=== PATIENT | male | born 2000 | race Caucasian/White ===

== ENCOUNTER 2025-03-07 16:54 | Emergency (ER) | payer OTHER, SELFPAY ==
--- NOTE | ~2025-03-07 | XR_ITS ---
XR chest 2V HOSTORY: dizzy, presyncope COMPARISON:[ None] FINDINGS: Frontal and lateral views of the chest were obtained. The lungs are clear. The heart size is normal in size. Pulmonary vasculature is unremarkable. Osseous structures are intact. IMPRESSION: No acute lung findings.] [ ] Reviewed, dictated and finalized at location S.
[2025-03-07 16:56] VITALS: BP 133/109; PULSE 130; RESP 18; O2SAT 98
--- NOTE | 2025-03-07 17:05 | ECG_ITS ---
Test Date: 2025-03-07 17:29:44 Measurements Intervals [place] Rate: 118 P: 54 IA: 115 QRS: 134 QRSD: 94 T: 47 QT: 305 QTc: 428 Interpretive Statements SINUS TACHYCARDIA WITH SHORT IA INTERVAL RIGHT AXIS DEVIATION INCOMPLETE RIGHT BUNDLE BRANCH BLOCK BORDERLINE R WAVE PROGRESSION, ANTERIOR LEADS BASELINE ARTIFACT- I, II, III, AVR, AVL, AVF, V1-V2 ABNORMAL ECG No previous ECG available for comparison Electronically Signed On 03-07-2025 19:10:13 CDT by Sebastian Mcclure D.O.
[2025-03-07 19:21] VITALS: BP 143/90; PULSE 111; RESP 18; O2SAT 98
[2025-03-07 20:52] VITALS: PULSE 100
[2025-03-07 20:54] LABS: Hematocrit 49.6 % (42.0-52.0); Hemoglobin 16.2 g/dL (14.0-18.0); Immature Granulocyte Percent A 0.4 % (0-0.5); Lymphocytes Absolute Auto 1.76 K/mm3 (0.9-3.2); Mean Corpuscular HGB Conc 32.7 g/dl (32-36); Mean Corpuscular Hemoglobin 27.2 pg (26-34); Mean Corpuscular Volume 83.4 fl (80-100); Nucleated Red Blood Cells Absolute Auto 0.000 K/mm3 (0.0-0.012); Nucleated Red Blood Cells Perc 0.0 % (0.0-0.2); Platelet Count Result 254 k/mm3 (150-375); Red Blood Count 5.95 M/mm3 (4.6-6.20); White Blood Count 10.0 K/mm3 (4.5-10.0)
[2025-03-07] MEDS: LACTATED RINGERS 1,000 ML 999 ML IV CONT (20:54)
--- NOTE | 2025-03-07 21:01 | ED_ITS ---
HPI - Dizziness General Chief Complaint: Dizziness Stated Complaint: elevated heart rate/BP/dizziness Time Seen by Provider: 03/07/25 20:38 History of Present Illness HPI Narrative: 24-year-old male with history of ADHD on Ritalin presenting to the emergency department today with episodes of dizziness, lightheadedness, blurry vision, cool extremities and feeling like he is going to pass out and like his heart was racing. Has happened to home yesterday and once today while he was at work not doing anything particularly strenuous or exertional. States he has had similar episodes prior that happened 6 months ago and then 2 months ago that were attributed to urinary infection but otherwise no acute findings. Patient states he has been drinking lots of water and going to the bathroom as he wants to stay hydrated no history of diabetes. No history of cardiac dysrhythmias to his knowledge. Only on Ritalin and no other medications at this time. No recent titration is to his medications and he has been on a stable dose for several years. Her recent illnesses or infections. No traumatic injuries. 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 Related Data Allergies Allergy/AdvReac Type Severity Reaction Status Date / Time No Known Allergies Allergy Verified 03/07/25 16:55 Review of Systems 2 Review of Systems: As reviewed above in HPI Exam 2 Narrative: GENERAL: [Well-appearing, well-nourished, and in no acute distress.] HEAD: [Normocephalic, atraumatic.] EYES: [PERRLA and EOMI.] ENT: Nares clear, no rhinorrhea or epistaxis. Mucous membranes moist. NECK: Supple. CHEST: [Clear to auscultation. No respiratory distress.] HEART: tachycardic rate, regular rhythm, warm extremities and symmetric pulses throughout.. No murmur heard. ABDOMEN: [Soft, nondistended], [nontender], [No rigidity or guarding] EXTREMITIES: Normal range of motion. [No edema.] SKIN: Warm, dry, no rash. NEURO: [No focal deficits]. Alert and oriented [x3.] PSYCH: [Normal mood and affect.] Course Vital Signs Vital signs: Vital Signs Pulse Rate 130 H 03/07/25 16:56 Respiratory Rate 18 03/07/25 16:56 Blood Pressure 133/109 H 03/07/25 16:56 Pulse Oximetry 98 10/30/25 16:56 Oxygen Delivery Room Air 03/07/25 16:56 Pulse Rate 79 03/07/25 23:47 Respiratory Rate 16 03/07/25 23:47 Blood Pressure 101/67 03/07/25 23:47 Pulse Oximetry 96 03/07/25 23:47 Oxygen Delivery Room Air 03/07/25 19:21 MDM - Dizziness MDM Narrative Medical decision making narrative: 24-year-old male with history of ADHD on Ritalin presenting to the emergency department today with episodes of dizziness, lightheadedness, blurry vision, cool extremities and feeling like he is going to pass out and like his heart was racing. Has happened to home yesterday and once today while he was at work not doing anything particularly strenuous or exertional. States he has had similar episodes prior that happened 6 months ago and then 2 months ago that were attributed to urinary infection but otherwise no acute findings. Patient states he has been drinking lots of water and going to the bathroom as he wants to stay hydrated no history of diabetes. No history of cardiac dysrhythmias to his knowledge. Only on Ritalin and no other medications at this time. No recent titration is to his medications and he has been on a stable dose for several years. Her recent illnesses or infections. No traumatic injuries. 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 Patient is mildly tachycardic here but better than his triage vital signs. No tachypnea or fever. Mildly elevated blood pressure. Unremarkable physical examination. Patient is describing presyncope type symptoms with prodrome prior to passing out but did not have a syncopal event. No headache or vision changes presently. States he is back to normal and these episodes of happen sporadically 1 time yesterday and 2 times in the past. He is overall well- appearing. Will investigate electrolyte derangements, diabetes potential, thyroid anomalies, possibility of a UTI given his history of similar episodes in prior infections. EKG shows sinus tachycardia. No dysrhythmia. Patient on granulating blender and re-evaluated. Given a fluid bolus. workup shows no leukocytosis or anemia. Normal platelet count. Electrolytes are unremarkable. Normal BUN and creatinine. Normal glucose. Normal LFTs. Normal TSH. Urinalysis without signs of infection or blood. EKG shows no acute concern. Chest x-ray without any acute findings. Patient's vital signs improved after fluids. No urgent or emergent concerns found today during ER visit. Will have to follow up with his outpatient primary care provider and given return precautions. Medical Records Attestation: I reviewed the patient's medical records. Lab Data Attestation: I reviewed the patient's lab results. 03/07/25 20:49 03/07/25 20:49 Labs: Lab Results 03/07/25 03/07/25 Range/Units 20:49 21:38 WBC 10.0 (4.5-10.0) K/mm3 RBC 5.95 (4.6-6.20) M/mm3 Hgb 16.2 (14.0-18.0) g/dL Hct 49.6 (42.0-52.0) % MCV 83.4 (80-100) fl MCH 27.2 (26-34) pg MCHC 32.7 (32-36) g/dl RDW 13.8 (11.5-14.5) % Plt Count 254 (150-375) k/mm3 MPV 9.7 (7.4-10.4) fl Immature Gran % (Auto) 0.4 (0-0.5) % Neut % (Auto) 72.2 (45.5-73.1) % Lymph % (Auto) 17.7 L (18.3-44.2) % [place] % (Auto) 7.4 (2.6-8.5) % Eos % (Auto) 1.8 (0-4.4) % Baso % (Auto) 0.5 (0.2-1.2) % Lymph # (Auto) 1.76 (0.9-3.2) K/mm3 [place] # (Auto) 0.7 H (0.1-0.6) K/mm3 Eos # (Auto) 0.2 (0-0.3) K/mm3 Baso # (Auto) 0.1 (0.0-0.1) K/mm3 Abs Immat Gran (auto) 0.04 H (0.00-0.031) K/mm3 Absolute Neuts (auto) 7.2 H (1.3-6.7) K/mm3 Absolute Nucleated RBC 0.000 (0.0-0.012) K/mm3 Nucleated RBC % 0.0 (0.0-0.2) % Sodium 136 L (137-145) mmol/L Potassium 4.0 (3.4-5.0) mmol/L Chloride 101 (98-107) mmol/L Carbon Dioxide 27 (22-30) mmol/L Anion Gap 8 (4-12) mmol/L BUN 10 (9-20) mg/dL Creatinine 0.81 (0.7-1.3) mg/dL Estim Creat Clear Calc 151 ml/min Estimated GFR > 60 (59 - ) Glucose 92 (65-110) mg/dL Calcium 8.8 (8.4-10.2) mg/dL Total Bilirubin 0.4 (0.2-1.3) mg/dL AST 47 (17-59) U/L ALT 99 H (6-50) U/L Alkaline Phosphatase 71 (38-126) U/L Total Protein 7.9 (6.3-8.2) g/dL Albumin 4.5 (3.5-5.1) g/dL TSH (Reflex) 2.650 (0.465-4.68) uIU/mL Urine Color Yellow (Yellow) Urine Appearance Clear (Clear) Urine pH 7.0 (5.0-9.0) Ur Specific [place] 1.015 (1.001-1.035) Urine Protein Negative (Negative) mg/dL Urine Glucose (UA) Negative (Negative) mg/dL Urine Ketones Negative (Negative) mg/dL Ur Blood (Man) Negative (Negative) Urine Nitrate Negative (Negative) Urine Bilirubin Negative (Negative) Urine Urobilinogen 0.2 (<2.0) mg/dL Leukocyte Esterase Rfl Negative (Negative) THOM/UL Imaging Data Attestation: I personally reviewed and interpreted this imaging study as follows: My impression: Impressions Chest X-Ray 03/07/25 21:38 IMPRESSION: No acute lung findings.] [ ] Discharge Plan Discharge Clinical Impression: Pre-syncope, Elevated heart rate with elevated blood pressure without diagnosis of hypertension Patient Disposition: Home Condition: Stable Instructions: Antibiotic Form Additional Instructions: Laboratory studies EKG and chest x-ray were rather unremarkable. normal thyroid panel. Normal electrolytes and glucose. No infection in the urine. Unclear the source of your symptoms. We did give you some fluid hydration here and you will need to follow-up with a primary care provider for further testing and evaluation. May benefit from Holter monitor for monitoring of any palpitations or heart rate anomalies. We have provided you a dog license officer supervisor to call for outpatient evaluation and fitting of this. Return with any emergent concerns. Patient Language: Kiswahili Follow-up/Referrals: Fernie,James Ayala MD [Primary Care Provider, Unknown] Kenny Montes MD [Physician, Interventional Cardiology] - 3 Days Referral Note: Intermittent palpitations, Holter monitor fitting Time of Disposition: 22:26
[2025-03-07 21:09] LABS: Alanine Aminotransferase 99 U/L (6-50); Albumin Level 4.5 g/dL (3.5-5.1); Alkaline Phosphatase 71 U/L (38-126); Anion Gap 8 mmol/L (4-12); Aspartate Amino Transferase 47 U/L (17-59); Bilirubin,Total 0.4 mg/dL (0.2-1.3); Blood Urea Nitrogen 10 mg/dL (9-20); Calcium 8.8 mg/dL (8.4-10.2); Carbon Dioxide 27 mmol/L (22-30); Chloride 101 mmol/L (98-107); Estimated CRCL calculation 151 ml/min; Estimated Glomerular Filt Rate > 60; Glucose 92 mg/dL (65-110); Potassium 4.0 mmol/L (3.4-5.0); Sodium 136 mmol/L (137-145); Total Protein 7.9 g/dL (6.3-8.2)
--- OUTSIDE RECORDS SUMMARY | 2025-03-07 21:11 | XMS_ITS | Encounter Summary ---
Author Organization [facility] Address Formerly [facility] [place] [address] Care Team Providers Care Traffic Or System Dispatcher Name Role Phone Unavailable Primary Care Provider Unavailabl e Encounter Details Date Type Department Care Team (Late st Contact Info) Description 11/20/2012 Abstract [facility] CONVERSION [address] [place] [address] , Generic Conversion, Social History Tobacco Use Types Packs/Day Years Used Date Smoking Tobacco: Never Assessed Sex and Gender Information Value Date Recorded Sex Assigned at Not on file Legal Sex Male 11:14 PM CDT Gender Identity Not on file Sexual Orientation Not on file documented as of this encounter Plan of Treatment Not on file documented as of this encounter Visit Diagnoses Not on filedocumented in this encounter
--- OUTSIDE RECORDS SUMMARY | 2025-03-07 21:11 | XMS_ITS | Clinical Summary ---
Author Organization [facility] at the Medical Office Building Address [address] [place] [id number] Care Team Providers Care Other Sports Coach Or Instructor Name Role Phone James Enciso DO Primary Care Provider + Allergies No known active allergies Medications albuterol HFA (PROVENTIL HFA,VENTOLIN HFA,PROAIR HFA) 90 mcg/actuation inhalerIndication s:Lower respiratory infection (e.g., bronchitis, pneumonia, pneumonitis, pulmonitis) Inhale 2 puffs every 6 (six) hours as needed for wheezing or shortness of breath 1 each 3 Active methylphenidate HCl (RITALIN) 20 mg tabletIndications :Attention-Defici t Hyperactivity Disorder Take 1 tablet (20 mg total) by mouth 2 (two) times a day Breakfast and Lunch 60 tablet 5 Active methylphenidate HCl (RITALIN) 20 mg tabletIndications :Attention-Defici t Hyperactivity Disorder Take 1 tablet (20 mg total) by mouth 2 (two) times a day Breakfast and Lunch 60 tablet 5 025 Discontin ued(Reord er) Active Problems Problem Noted Date Diagnosed Date Obesity (BMI 30-39.9) 09/16/2021 Attention deficit 04/08/2021 Asthma 12/13/2018 Encounters Date Type Department Care Team Description 01/16/2025 6:20 PM CDT - 01/16/2025 8:19 PM CDT Emergency [facility] Emergency Department [address] [place] [address] Carlos Delgadillo DO Acute cystitis with hematuria (Primary Dx) Discharge Disposition: Discharge to home or self care from Last 3 Months Immunizations Immunization Administration Dates Next Due DTaP 5 Pertussis 12/05/2006, 3,03/29/2002,01/25,2001 HPV9 12/13/2018 Hep B, Unspecified 01/25/2002,2001, 002 HiB 10/11/2002,01/25/2002,2001 IPV 12/05/2006, 3,01/25/2002,11/21 Influenza, Quadrivalent, Spl it, Preservative Free, Intramuscular 02/27/2023,02/23/2022 Influenza, Trivalent, Preser vative Free, Intramuscular 03/19/2024 Influenza, Unspecified 03/09/2023 MMR 12/05/2006,01/11/2003 Meningococcal ACWY, Unspecified 11/21/2015 Meningococcal MCV4P (Menactra) 12/13/2018,2015 Pneumococcal Conjugate, Unspecified 09/2002,03/29/2002,02/09/2002,11/21 Tdap 12/28/2023,11/20/2012 Varicella 11/20/2012,01/11/2003 Surgical History Surgery Date Site/Laterality Comments NO PAST SURGERIES Medical History Medical History Date Comments Asthma Family History Medical History Relation Name Comments Cancer Father Diabetes Maternal Grandfather Hypertension Maternal Grandfather Hypertension Maternal Grandmother Hypertension Mother Hypertension Paternal Grandfather Hypertension Paternal Grandmother Relation Name Status Comments Father Alive Maternal Grandfather Maternal Grandmother Mother Alive Paternal Grandfather Paternal Grandmother Social History Tobacco Use Types Packs/Day Years Used Date Smoking Tobacco: Never Tobacco Cessation:Counseling Given: Not Answered Alcohol Use Standard Drinks/Week Comments Never 0 (1 standard drink = 0.6 oz pur e alcohol) AUDIT-C Answer Date Recorded Frequency of Alcohol Consumption Never 12/13/2018 Average Number of Drinks Not on file 019 Frequency of Binge Drinking Not on file 11/2018 PHQ-2 Answer Date Recorded PHQ-2 Total Score (If total score is 3 or more points, staff should administer the PHQ-9) 0 09/25/2024 Personal Safety Answer Date Recorded Have you ever been in or are you currently in a harmful physical or emotional relationship or is someone making you feel afraid or unsafe? 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 Gender Identity Not on file Sexual Orientation Not on file Obstetrics History Last Filed Vital Signs Vital Sign Reading Time Taken Comments Blood Pressure 116/67 01/16/2025 8:00 PM CDT Pulse 101 01/16/2025 8:00 PM CDT Temperature 37.3 C (99.2 F) 01/16/2025 6:22 PM CDT Respiratory Rate 18 01/16/2025 6:22 PM CDT Oxygen Saturation 96% 01/16/2025 8:00 PM CDT Inhaled Oxygen Concentration - - Weight 103.5 kg (228 lb 2.8 oz) 01/16/2025 6:22 PM CDT Height 182.9 cm (6') 01/16/2025 6:22 PM CDT Body Mass Index 30.95 01/16/2025 6:22 PM CDT Plan of Treatment Health Maintenance Due Date Last Done Comments Hepatitis C Screening 2001 Pneumococcal vaccine <65 (1 of 1 - PPSV23, PCV20, or PCV21) 10/02/2007 10/11/2002, 03/29/2002, 02/09/2002, Additional history exists Meningococcal B Vaccine (1 o f 2 - Standard) 2017 HPV Vaccines (2 - Male 3-dos e series) 01/10/2019 12/13/2018 Covid-19 Vaccine (3 - 2024-2 6 season) 2025 01/02/2021, 12/05/2020 Influenza Vaccine (#1) 2025 , 03/09/2023, 02/27/2023, Additional history exists Depression Screening 09/25/2025 09/25/2024, 04/30/2021, 04/08/2021 Regular Well Visit/Exam 18-64 09/25/2025, 02/01/2023, 04/08/2021 DTaP/Tdap/Td Vaccine (8 - Td or Tdap) 12/27/2033 12/28/2023, 11/20/2012, 12/05/2006, Additional history exists Hepatitis B Screening Completed 01/25/2002 , 2001, 2001 Varicella Vaccines Completed 11/20/2012, 01/11/2003 Procedures Procedure Name Priority Date/Time Associated Diagnosis Comments CT ABDOMEN PELVIS WO CONTRAST ED 01/16/2025 6:50 PM CDT URINALYSIS, MICROSCOPIC ONLY STAT 01/16/2025 6:40 PM CDT URINALYSIS AND REFLEX TO MICROSCOPIC AND CULTURE STAT 01/16/2025 6:40 PM CDT EGFR STAT 01/16/2025 6:24 PM CDT DIFFERENTIAL AUTO STAT 01/16/2025 6:2 4 PM CDT LIPASE STAT 01/16/2025 6:24 PM CDT COMPREHENSIVE METABOLIC PANEL STAT 01/16/2025 6:24 PM CDT CBC WITH AUTO DIFFERENTIAL STAT 01/16/2025 6:24 PM CDT from Last 3 Months Results * CT Abdomen Pelvis WO Contrast (01/16/2025 6:50 PM CDT) Anatomical Region Laterality Modality Body N/A Computed Tomogra phy 01/16/2025 7:40 PM CDT Narrative 01/16/2025 7:57 PM CDT EXAM DESCRIPTION: CT ABDOMEN PELVIS WO CONTRAST REASON FOR STUDY: flank pain and hematuria c/o left sided low back pain that started about 2 hours ago. Reports pink colored urine with blood clot noted. TECHNIQUE: CT scan of the abdomen and pelvis performed without intravenous and without oral contrast using helical scanning technique. Reconstructed coronal and sagittal MPR images reviewed. All images stored on PACS. Automated exposure control was used as a dose optimization technique for this examination. COMPARISON: CT of the abdomen and pelvis dated 08/20/2024. FINDINGS: The sensitivity for detection of visceral lesions is diminished without the use of intravenous contrast. LOWER CHEST: No significant pulmonary abnormalities. No effusion. LIVER: Normal size. No identified cystic or solid masses. GALLBLADDER: No stones identified. No wall thickening or inflammatory changes. BILE DUCTS: No intrahepatic or extrahepatic ductal dilatation. SPLEEN: Normal size. No focal lesions. PANCREAS: No identified cystic or solid masses. No significant calcifications. No adjacent inflammation or peripancreatic fluid collections. Pancreatic duct not dilated. ADRENALS: Normal. KIDNEYS/URINARY TRACT: No identified significant cystic or solid masses. No stones. No hydronephrosis or hydroureter. Mild circumferential urinary bladder wall thickening. GI: No dilated bowel loops. No obvious wall thickening. Normal appendix. Mild colonic diverticulosis without evidence of acute diverticulitis. PERITONEUM: No ascites or free air. RETROPERITONEUM: No mass or adenopathy. REPRODUCTIVE: No significant abnormality. VASCULATURE: No abdominal aortic aneurysm. MUSCULOSKELETAL: No acute abnormality. OTHER: No other abnormality. IMPRESSION: 1. Mild circumferential urinary bladder wall thickening which may be compatible with cystitis in the appropriate clinical setting. Recommend clinical correlation. 2. No urinary tract calculi or obstructive uropathy. 3. Mild colonic diverticulosis without evidence of acute diverticulitis. THIS IS AN ELECTRONICALLY VERIFIED FINAL REPORT 01/16/2025 7:57 PM - Electronically signed by Perry Rene M.D. MF: [email or web address] Report ID: [id number] Reading Location: [place] [address] Procedure Note Perry Rene, - 01/16/2025 EXAM DESCRIPTION: CT ABDOMEN PELVIS WO CONTRAST REASON FOR STUDY: flank pain and hematuria c/o left sided low back pain that started about 2 hours ago. Reports pink colored urine with blood clot noted. TECHNIQUE: CT scan of the abdomen and pelvis performed without intravenousand without oral contrast using helical scanning technique. Reconstructed coronal and sagittal MPR images reviewed. All images stored on PACS.Automated exposure control was used as a dose optimization technique for this examination. COMPARISON: CT of the abdomen and pelvis dated 08/20/2024. FINDINGS: The sensitivity for detection of visceral lesions is diminished without the use of intravenous contrast. LOWER CHEST: No significant pulmonary abnormalities. No effusion. LIVER: Normal size. No identified cystic or solid masses. GALLBLADDER: No stones identified. No wall thickening or inflammatory changes. BILE DUCTS: No intrahepatic or extrahepatic ductal dilatation. SPLEEN: Normal size. No focal lesions. PANCREAS: No identified cystic or solid masses. No significant calcifications. No adjacent inflammation or peripancreatic fluidcollections. Pancreatic duct not dilated. ADRENALS: Normal. KIDNEYS/URINARY TRACT: No identified significant cystic or solid masses.No stones. No hydronephrosis or hydroureter. Mild circumferential urinary bladder wall thickening. GI: No dilated bowel loops. No obvious wall thickening. Normalappendix. Mild colonic diverticulosis without evidence of acute diverticulitis. PERITONEUM: No ascites or free air. RETROPERITONEUM: No mass or adenopathy. REPRODUCTIVE: No significant abnormality. VASCULATURE: No abdominal aortic aneurysm. MUSCULOSKELETAL: No acute abnormality. OTHER: No other abnormality. IMPRESSION: 1. Mild circumferential urinary bladder wall thickeningwhich may be compatible with cystitis in the appropriate clinical setting. Recommend clinical correlation. 2. No urinary tract calculi or obstructive uropathy. 3. Mild colonic diverticulosis without evidence of acute diverticulitis. THIS IS AN ELECTRONICALLY VERIFIED FINAL REPORT 01/16/2025 7:57 PM - Electronically signed by Perry Rene M.D. MF: [email or web address] Report ID: [id number] Reading Location: [place] [address] Carlos Delgadillo DO G CT PROCEDURES Final Result * (ABNORMAL) Urinalysis reflex to microscopic and culture Urine (01/16/2025 6:40 PM CDT) Color, ur Yellow Yellow Comment:Testing performed by : [address] [address] Clarity, ur Clear Clear GEORGE Comment:Testing performed by : [address] [address] Specific gravity, ur 1.027 1.003 - 1.030 GEORGE Comment:Testing performed by : [address] [address] pH, urine 7.0 GEORGE Comment: Interpretive Data U rine pH is affected by diet, medications, systemic acid-base disturbances, and renal tubular function. pH may affect urinary stone formation. For example, urine pH below 6.0 may help reduce the tendency for calcium phosphate stones and pH greater than 6.0 may reduce the tendency for uric acid stone formation. Source: [facility] [employer] Current Interpretive Data was last revised on 2017 Testing performed by: [address] [address] Protein, ur ql Negative Negative GEORGE Comment:Testing performed by : [address], [place]., [address] Glucose, ur ql Negative Negative GEORGE Comment:Testing performed by : [address], [place]., [address] Ketones, ur Negative Negative GEORGE Comment:Testing performed by : [address], [place]., [address] Bilirubin, ur Negative Negative GEORGE Comment:Testing performed by : [address], [place]., [address] Blood, ur 3+(A) Negative GEORGE Comment:Testing performed by : [address], [place]., [address] Urobilinogen, ur <2.0 <2.0 mg/dL GEORGE Comment:Testing performed by : [address], [place]., [address] Nitrite, ur Negative Negative GEORGE Comment:Testing performed by : [address] [address] Leukocyte esterase, ur 1+(A) Negative GEORGE Comment:Testing performed by : [address] [address] UA reflex comment Reflex to microscopic UA will be performed. GEORGE Comment:Testing performed by : [address] [address] Urine 01/16/2025 6:40 PM CDT 01/16/2025 6:44 PM CDT us Carlos Delgadillo DO LAB MICROBIOLOGY - GENERAL ORD ERABLES Final Result Performing Organization Address City/State/[facility] de Phone Number GEORGE [id number] [place] [address] * (ABNORMAL) Urinalysis, microscopic only (01/16/2025 6:40 PM CDT) WBC, ur 6-10(A) 0 - 5 /HPF Comment:Testing performed by : [facility], [address] [place] [address]., [address] RBC, ur >50(A) 0 - 2 /HPF GEORGE Comment:Testing performed by : [facility], [address] [place] [address], [place]., [address] Epithelial cells, squamous, ur 21-50(A) 0 - 5 /HPF GEORGE Comment:Testing performed by : [address] [address] Mucous, ur Present(A) GEORGE Comment:Testing performed by : [address] [address] Culture Reflex Comment Reflex conditions for urine culture (WBC >10) not met. GEORGE Comment:Testing performed by : [facility], [address] [place] [address], [place]., [address] Urine 01/16/2025 6:40 PM CDT 01/16/2025 6:44 PM CDT Carlos Delgadillo DO LAB URINE ORDERABLES Final Res ult Performing Organization Address [facility] de Phone Number GEORGE [address] [place] [address] * eGFR (01/16/2025 6:24 PM CDT) Pathologist [facility] eGFR >90 >=60 mL/min/1. 73 m2 Comment: Interpretive Data Reference Interval Normal >/= 90 mL/min/1.73m2 Mildly decreased* 60 - 89 mL/min/1.73m2 Mildly to moderately decreased 45 - 59 mL/min/1.73m2 Moderately to severely decreased 30 - 44 mL/min/1.73m2 Severely decreased 15 - 29 mL/min/1.73m2 Kidney Failure < 15 mL/min/1.73m2 *Relative to young adult level Estimated glomerular filtration rate is determined by the 2020 CKD-EPI equation recommended by the National Kidney Foundation (A Unifying Approach to GFR Estimation: Recommendations of the NKF-ASK Task Force on Reassessing the Inclusion of Race in Diagnosing Kidney Disease, JASN 2020). The CKD-EPI equation should not be used for patients with unstable renal function and has not been validated in children and those over 70. Current interpretive data was last reviewed 2021. Testing performed by: [address] [address] Blood 01/16/2025 6:24 PM CDT 01/16/2025 6:28 PM CDT us Carlos Delgadillo DO LAB BLOOD ORDERABLES Final Res ult GEORGE [address] [facility] [place] [address] * (ABNORMAL) Differential, auto (01/16/2025 6:24 PM CDT) Neutrophil abs 6.87(H) 1.50 - 6.50 K/cumm Comment:Testing performed by : [address] [address] Imm gran abs 0.04 0.00 - 0.10 K/cumm GEORGE Comment:Testing performed by : [address] [address] Lymphocyte abs 0.91 0.80 - 3.30 K/cumm GEORGE Comment:Testing performed by : [address] [address] Monocyte abs 0.82(H) 0.20 - 0.80 K/cumm GEORGE Comment:Testing performed by : [address] [address] Eosinophil abs 0.07 0.00 - 0.50 K/cumm GEORGE Comment:Testing performed by : [address] [address] Basophil abs 0.04 0.00 - 0.10 K/cumm GEORGE Comment:Testing performed by : [address] [address] Neutrophil pct 78.4 % GEORGE Comment: Interpretive Data Percent cell count reference ranges are not reported, since discordance with absolute values may lead to misinterpretation of CBC data. Current Interpretive Data was last revised on 2017. Testing performed by: [address] [address] Imm gran pct 0.5 % [facility] Comment: Interpretive Data Percent cell count reference ranges are not reported, since discordance with absolute values may lead to misinterpretation of CBC data. Current Interpretive Data was last revised on 2017. Testing performed by: [address] [address] Lymphocyte pct 10.4 % [facility] Comment: Interpretive Data Percent cell count reference ranges are not reported, since discordance with absolute values may lead to misinterpretation of CBC data. Current Interpretive Data was last revised on 2017. Testing performed by: [address] [address] Monocyte pct 9.4 % [facility] Comment: Interpretive Data Percent cell count reference ranges are not reported, since discordance with absolute values may lead to misinterpretation of CBC data. Current Interpretive Data was last revised on 2017. Testing performed by: [address] [address] Eosinophil pct 0.8 % [facility] Comment: Interpretive Data Percent cell count reference ranges are not reported, since discordance with absolute values may lead to misinterpretation of CBC data. Current Interpretive Data was last revised on 2017. Testing performed by: [address] [address] Basophil pct 0.5 % [facility] Comment: Interpretive Data Percent cell count reference ranges are not reported, since discordance with absolute values may lead to misinterpretation of CBC data. Current Interpretive Data was last revised on 2017. Testing performed by: [address] [address] Blood 01/16/2025 6:24 PM CDT 01/16/2025 6:28 PM CDT us Carlos Delgadillo DO LAB BLOOD ORDERABLES Final Res ult GEORGE [address] [facility] [place] [address] * CBC with auto differential (01/16/2025 6:24 PM CDT) WBC 8.75 3.80 - 9.90 K/cumm Comment:Testing performed by : [address] [address] Hgb 15.9 13.0 - 17.5 g/dL GEORGE Comment:Testing performed by : [address] [address] Hct 46.5 38.9 - 50.3 % GEORGE Comment:Testing performed by : [address] [address] Plt 207 150 - 400 K/cumm GEORGE Comment:Testing performed by : [address] [address] MPV 10.0 9.1 - 12.3 fL GEORGE Comment:Testing performed by : [address] [address] RBC 5.72 4.30 - 5.80 M/cumm GEORGE Comment:Testing performed by : [address] [address] MCV 81.3 81.3 - 96.4 fL GEORGE Comment:Testing performed by : [address] [address] MCH 27.8 27.1 - 33.3 pg GEORGE Comment:Testing performed by : [address] [address] MCHC 34.2 32.3 - 35.7 g/dL GEORGE Comment:Testing performed by : [address], [address] RDW CV 14.0 11.1 - 14.9 % GEORGE Comment:Testing performed by : [address] [address] RDW SD 41.0 35.7 - 48.1 fL GEORGE Comment:Testing performed by : [address] [address] NRBC abs 0.00 0.00 - 0.01 K/cumm GEORGE SCHMITZ Comment:Testing performed by : [address] [address] Blood Venous blood specimen / Unknown 01/16/2025 6:24 PM CDT 01/16/2025 6:28 PM CDT [employer] DO LAB BLOOD ORDERABLES Final Res ult Performing Organization Address City/[facility] Co de Phone Number [address] [place] [address] * Lipase (01/16/2025 6:24 PM CDT) Pathologist [facility] Lipase 27 10 - 99 Units/L Comment:Testing performed by : [address], [address] Blood Venous blood specimen / Unknown 01/16/2025 6:24 PM CDT 01/16/2025 6:28 PM CDT [employer] LAB BLOOD ORDERABLES Final Res ult Performing Organization Address City/[facility] Co de Phone Number [address] [place] [address] * (ABNORMAL) Comprehensive metabolic panel (01/16/2025 6:24 PM CDT) Pathologist [facility] Sodium 135 135 - 145 mmol/L Comment:Testing performed by : [address] [address] Potassium, pl 3.8 3.3 - 4.9 mmol/L GEORGE Comment:Testing performed by : [address] [address] Chloride 102 97 - 110 mmol/L GEORGE Comment:Testing performed by : [facility], [address] [place] [address]., [address] CO2 23 22 - 32 mmol/L GEORGE Comment:Testing performed by : [address] [address] Anion gap 10 2 - 15 mmol/L GEORGE Comment:Testing performed by : [address], [place]., [address] BUN 18 6 - 25 mg/dL GEORGE Comment:Testing performed by : [address], [place]., [address] Creatinine 0.89 0.80 - 1.30 mg/dL GEORGE Comment:Testing performed by : [address] [address] Glucose 94 70 - 199 mg/dL GEORGE Comment: Interpretive Data Fasting glucose >/= 126 mg/dl is diagnostic for diabetes. Fasting is defined as no caloric intake for at least 8 hours. Fasting glucose between 100 mg/dl to 125 mg/dl is diagnostic of prediabetes. In a patient with classic symptoms of hyperglycemia or hyperglycemic crisis, a random glucose >/= 200 mg/dl is diagnostic for diabetes. In the absence of unequivocal hyperglycemia, results should be confirmed by repeat testing. The classification and Diagnosis of Diabetes Diabetes Care 202; 46: S19-S40. Current interpretive data was last revised 2022. Testing performed by: [address] [address] Calcium 9.1 8.5 - 10.3 mg/dL GEORGE Comment:Testing performed by : [address] [address] Bilirubin, total 0.4 0.1 - 1.2 mg/dL GEORGE Comment:Testing performed by : [address] [address] Protein, pl 7.5 6.5 - 8.5 g/dL GEORGE Comment:Testing performed by : [address] [address] Albumin 4.3 3.5 - 5.0 g/dL GEORGE Comment:Testing performed by : [address] [address] Alk phos 75 40 - 130 Units/L GEORGE Comment:Testing performed by : [facility], [address] [place] [address]., [address] ALT 66(H) 7 - 55 Units/L GEROGE Comment:Testing performed by : [facility], [address] [place] [address]., [address] AST 32 10 - 50 Units/L GEORGE Comment:Testing performed by : [address] [address] Blood Venous blood specimen / Unknown 01/16/2025 6:24 PM CDT 01/16/2025 6:28 PM CDT us Carlos Delgadillo DO LAB BLOOD ORDERABLES Final Res ult [facility] [address] [facility] [place] [address] from Last 3 Months Insurance [facility] [employer] Address: [facility] [address] [place] [address] [employer] Address: [address] [place]IGU[place] Ibrahim [phone] [employer] Address: [address] [place] [address] Care Teams Other Sports Coach Or Instructor Relationship Specialty Start Date End Date James Enciso DO [address] [id number] PCP - General Family Medicine 03/10/21
--- NOTE | 2025-03-07 21:23 | PC.NURSE ---
Pt taken to CT on stretcher
[2025-03-07 21:41] LABS: Thyroid Stimulating Hormone Reflex 2.650 uIU/mL (0.465-4.68)
[2025-03-07 21:45] LABS: Add Urine Microscopic? NO; Appearance Urine Clear (Clear); Glucose Urine UA Negative (Negative); Leukocyte Esterase Ur Negative LEU/UL (Negative); Nitrate Urine Negative (Negative); Specific Grav Ur 1.015 (1.001-1.035)
[2025-03-07 23:47] VITALS: BP 101/67; PULSE 79; RESP 16; O2SAT 96
== END 2025-03-07 23:49 | disposition home or self-care (01) ==
PROVIDERS: Emergency Provider Student in an Organized Health Care Education/Training Program; PCP Family Medicine
DX: R55 Syncope and collapse (principal); R03.0 Elevated blood-pressure reading, without diagnosis of hypertension; R00.0 Tachycardia, unspecified; F90.9 Attention-deficit hyperactivity disorder, unspecified type; Z79.899 Other long term (current) drug therapy; I45.10 Unspecified right bundle-branch block
CPT/HCPCS: 36415; 71046; 80053; 81003; 84443; 85025; 93005; 96360; 99284; J7120